=== PATIENT | male | born 1975 | race Caucasian/White ===

== ENCOUNTER → 2021-10-06 | Day surgery (SDC) | payer OTHER ==
[~2021-10-06] VITALS: Ht 195.6 cm; Wt 90.7 kg
[~2021-10-06] MED LIST: AMOXICILLIN500 MG PO
[2021-10-06 07:57] LABS: BASOPHIL 0.9 % (0-2); HGB 14.4 g/dl (13.2-18.0); LYMPHOCYTE 24.5 % (15-48); MCH 30.6 pg (25.0-31.0); MCHC 32.7 g/dL (32.0-36.0); MCV 93.4 fL (78.0-100.0); MONOCYTE 11.7 % (0-12); MPV 9.1 fL (6.0-9.5); NEUTROPHIL 59.6 % (41-80); NRBC 0; PLT 351 K/uL (150-400); RBC 4.71 M/uL (4.70-6.00); RDW 14.2 % (11.5-14.0); WBC 7.7 K/uL (4.0-10.5)
== END | disposition home or self-care (01) ==
LOC: FAS 07:20
PROVIDERS: Oral & Maxillofacial Surgery
DX: K02.9 Dental caries, unspecified (principal); K04.7 Periapical abscess without sinus; F15.11 Other stimulant abuse, in remission; Z20.822 Contact with and (suspected) exposure to COVID-19
CPT/HCPCS: 36415; 71045; 85025; 93005; J1100; J1885; J2001; J2250; J2405; J2704; J2710; J3010; J7120